=== PATIENT | female | born 1955 | race Caucasian/White ===

== ENCOUNTER 2017-10-17 19:05 | Emergency (ER) | payer SELFPAY ==
[~2017-10-17] VITALS: Ht 165.1 cm; Wt 93.9 kg
[~2017-10-17 19:05] MED LIST: METO-356 PO; METO25TA6 PO; PRAV40TA3 PO
--- NOTE | 2017-10-17 19:19 | NUR ---
LILA ESCOBEDO AT BEDSIDE FOR MSE.
[2017-10-17] MEDS ORDERED: PHENAZOPYRIDINE HCL 100 MG TABLET ONE (19:26)
[2017-10-17] MEDS ORDERED: PHENAZOPYRIDINE HCL 100 MG TABLET PO ONE (19:30)
[2017-10-17 19:55] LABS: *BILIRUBIN,URIN NEGATIVE (NEGATIVE); *BLOOD, URINE NEGATIVE (NEGATIVE); *CLARITY,URINE SLIGHTLY CLOUDY (CLEAR); *COLOR,URINE YELLOW (YELLOW); *KETONES,URINE NEGATIVE (NEGATIVE); *PROTEIN,URINE NEGATIVE (NEGATIVE); *UROBILINOGEN,URINE 0.2 E.U./dl (NORMAL); LEUKOCYTE ESTERASE ,URINE TRACE (NEGATIVE); NITRITE, URINE NEGATIVE (NEGATIVE)
[2017-10-17 20:02] LABS: UGLUCOSE 2+ (NEGATIVE)
[2017-10-17 20:03] LABS: BACTERIA,URINE FEW /HPF (NONE SEEN); RBC,URINE 0-3 /HPF (0-3); SQUAMOUS EPITHELIAL CELL,UR MODERATE /HPF (NONE SEEN); WBC,URINE 20-50 /HPF (0-3)
--- NOTE | 2017-10-17 20:20 | NUR ---
Patient discharged to home in stable conditon. Written and verbal after care instructions given. Patient verbalizes understanding of instructions. Pt ambulated from ER in steady gait. All belongings with pt. VSS. No acute distress noted.
[2017-10-17 20:29] VITALS: BP 121/71
== END 2017-10-17 20:30 | disposition home or self-care (01) ==
LOC: ER 19:07
DX: N39.0 Urinary tract infection, site not specified (principal); I10 Essential (primary) hypertension; Z79.4 Long term (current) use of insulin
CPT/HCPCS: 81001; 87086; 99284; A4663

== ENCOUNTER 2017-10-26 16:08 | Emergency (ER) | payer SELFPAY ==
[~2017-10-26] VITALS: Ht 167.6 cm; Wt 81.6 kg
--- NOTE | 2017-10-26 16:24 | NUR ---
Urine collected and sent to lab.
[2017-10-26 16:40] LABS: *CLARITY,URINE SLIGHTLY CLOUDY (CLEAR); *COLOR,URINE ORANGE (YELLOW); *PROTEIN,URINE NEGATIVE (NEGATIVE); UGLUCOSE NEGATIVE (NEGATIVE)
[2017-10-26 16:41] LABS: *BILIRUBIN,URIN NEGATIVE (NEGATIVE); *BLOOD, URINE TRACE (NEGATIVE); *KETONES,URINE NEGATIVE (NEGATIVE); BACTERIA,URINE MANY /HPF (NONE SEEN); LEUKOCYTE ESTERASE ,URINE 1+ (NEGATIVE); NITRITE, URINE POSITIVE (NEGATIVE); SQUAMOUS EPITHELIAL CELL,UR MODERATE /HPF (NONE SEEN); WBC,URINE 50-80 /HPF (0-3)
--- NOTE | 2017-10-26 16:58 | NUR ---
Patient discharged to home in stable conditon. Written and verbal after care instructions given. Patient verbalizes understanding of instructions.
[2017-10-26 16:59] VITALS: BP 153/89
== END 2017-10-26 17:00 | disposition home or self-care (01) ==
LOC: ER 16:09
DX: N39.0 Urinary tract infection, site not specified (principal); I10 Essential (primary) hypertension; E11.9 Type 2 diabetes mellitus without complications; Z79.899 Other long term (current) drug therapy
CPT/HCPCS: 81001; 87077; 87086; 87186; 99284; A4663

== ENCOUNTER 2022-04-14 12:54 | Emergency (ER) | payer SELFPAY ==
[~2022-04-14] VITALS: Ht 167.6 cm; Wt 93.0 kg
--- NOTE | 2022-04-14 13:04 | NUR ---
Pt. walked to the ER c/o lower abd pain 01/06 non-radiating. Pt reports burning and dysuria since 04/17. Denies n/v. Hx Diabetes, UTI, anxiety. evaluated pt for MSE.
[2022-04-14 13:32] LABS: *BILIRUBIN,URIN NEGATIVE (NEGATIVE); *BLOOD, URINE NEGATIVE (NEGATIVE); *CLARITY,URINE CLEAR (CLEAR); *COLOR,URINE YELLOW (YELLOW); *KETONES,URINE NEGATIVE (NEGATIVE); *UROBILINOGEN,URINE 0.2 E.U./dl (NORMAL); LEUKOCYTE ESTERASE ,URINE 1+ (NEGATIVE); NITRITE, URINE NEGATIVE (NEGATIVE); PH,URINE 5.5 (5.0-8.0); UGLUCOSE 2+ (NEGATIVE)
[2022-04-14] MEDS ORDERED: IBUP-1955 PO (13:48)
[2022-04-14] MEDS ORDERED: NITR100C6 PO (13:48)
--- NOTE | 2022-04-14 14:04 | NUR ---
Patient discharged to home in stable condition. Written and verbal after care instructions given. Patient verbalizes understanding of instructions. Stressed follow up or return to ER for worsening s/s.
[2022-04-14 14:05] VITALS: BP 136/70
[2022-04-14 16:47] LABS: BACTERIA,URINE 1 /HPF (NONE SEEN); RBC,URINE 0-3 /HPF (0-3); SQUAMOUS EPITHELIAL CELL,UR FEW /HPF (NONE SEEN)
== END 2022-04-14 14:08 | disposition home or self-care (01) ==
LOC: ER 12:54
DX: N39.0 Urinary tract infection, site not specified (principal); E78.5 Hyperlipidemia, unspecified; I10 Essential (primary) hypertension; E10.9 Type 1 diabetes mellitus without complications; Z79.899 Other long term (current) drug therapy
CPT/HCPCS: 87077; 87086; A4663

== ENCOUNTER 2022-07-05 17:29 | Emergency (ER) | payer MEDICARE ==
[~2022-07-05] VITALS: Ht 167.6 cm; Wt 90.7 kg
[~2022-07-05 17:29] MED LIST changes: +IBUP-1955 PO; +NITR100C6 PO
--- NOTE | 2022-07-05 18:00 | NUR ---
Pt arrived in the ED w/ c/o dysuria. Seen by SUPA for MSE.
[2022-07-05 18:01] LABS: *BILIRUBIN,URIN 1+ (NEGATIVE); *BLOOD, URINE NEGATIVE (NEGATIVE); *CLARITY,URINE SLIGHTLY CLOUDY (CLEAR); *COLOR,URINE Orange (YELLOW); *KETONES,URINE TRACE (NEGATIVE); LEUKOCYTE ESTERASE ,URINE 3+ (NEGATIVE); NITRITE, URINE POSITIVE (NEGATIVE); UGLUCOSE 1+ (NEGATIVE)
[2022-07-05] MEDS ORDERED: PHEN-704 PO (18:11)
[2022-07-05] MEDS ORDERED: CEPH500C2 PO (18:11)
[2022-07-05 19:02] LABS: BACTERIA,URINE FEW /HPF (NONE SEEN)
[2022-07-05 19:03] LABS: RBC,URINE 0-3 /HPF (0-3)
== END 2022-07-05 18:30 | disposition home or self-care (01) ==
LOC: ER 17:32
DX: N39.0 Urinary tract infection, site not specified (principal); E11.9 Type 2 diabetes mellitus without complications; E78.5 Hyperlipidemia, unspecified; Z87.440 Personal history of urinary (tract) infections; Z79.899 Other long term (current) drug therapy
CPT/HCPCS: A4663

== ENCOUNTER 2025-03-02 22:11 | Emergency (ER) | payer MEDICARE ==
[~2025-03-02] VITALS: Ht 165.1 cm; Wt 81.6 kg
[~2025-03-02 22:11] MED LIST changes: +CEPH500C2 PO; +PHEN-704 PO
[2025-03-02 22:22] VITALS: BP 161/92
[2025-03-03] MEDS ORDERED: IBUPROFEN 600 MG TABLET ONE (00:25)
[2025-03-03] MEDS: IBUPROFEN 600 MG TABLET PO ONE (00:28)
[2025-03-03 00:43] VITALS: BP 149/88; O2SAT 98
== END 2025-03-03 00:42 | disposition home or self-care (01) ==
LOC: ER 22:15
DX: S63.592A Other specified sprain of left wrist, initial encounter (principal); E11.9 Type 2 diabetes mellitus without complications; E78.5 Hyperlipidemia, unspecified; F41.9 Anxiety disorder, unspecified; Z79.4 Long term (current) use of insulin; Z79.899 Other long term (current) drug therapy; Z88.7 Allergy status to serum and vaccine; Z91.018 Allergy to other foods; W01.0XXA Fall on same level from slipping, tripping and stumbling without subsequent striking against object, initial encounter; Y93.89 Activity, other specified; Y92.89 Other specified places as the place of occurrence of the external cause; Y99.8 Other external cause status
CPT/HCPCS: 73110; A4606; A4663